=== PATIENT | female | born 1955 | race Caucasian/White ===

== ENCOUNTER 2018-07-07 07:58 | Inpatient (IN) ==
--- NOTE | 2018-07-03 19:46 | MH ---
cc: Vivek Ortega MD DATE OF ADMISSION: 07/07/2018 ADMITTING DIAGNOSES: Severe osteoarthritis of the left hip. HISTORY OF PRESENT ILLNESS: The patient is a 62-year-old white female who was admitted to the hospital in April of this past year for a history of severe osteoarthritis of her right hip. At that time, she underwent a right total hip arthroplasty being completed in an uncomplicated manner and was initiated thereafter through a course of physical therapy. During this interval of time she began to note the onset of similar pain involving her left hip that became more pronounced with the passage of time, she continued to conform to her rehab program while taking both diclofenac and Percocet for pain management. Because of increasing discomfort, she subsequently presented to the office of the undersigned physician in June of this year and at that time, described progressive incapacitation with regard to all weightbearing activities for which she was utilizing a cane as an ambulatory aid. Her x-ray studies revealed severe degenerative changes with subtotal obliteration of the joint space and deformation of the femoral head with a flattening effect that resulted in a superior subluxation of the proximal femur. Findings and treatment options were reviewed with the patient at that time. The pros and cons of continued conservative management versus operative intervention involving total hip arthroplasty were outlined in detail. Emphasis was made that the decision to proceed with additional surgery would be left entirely to the patient's discretion. The patient readily admitted that she was markedly incapacitated with regard to all weightbearing activities and noting the favorable outcome that she had experienced from previous surgery involving her right hip, expressed her desire to proceed accordingly with similar treatment at this time. In compliance with her wishes, she was scheduled for admission in order left total hip arthroplasty be completed. PAST MEDICAL HISTORY, HOSPITALIZATIONS AND SURGERIES: In addition to her right total hip arthroplasty include abdominal hysterectomy, tonsillectomy, section, medical evaluation for chest pain, the patient being later diagnosed as having GERD syndrome. MEDICAL ILLNESSES: Include her history of osteoarthritis, osteoporosis, and acid reflux. CURRENT MEDICATIONS: 1. Diclofenac 50 mg 3 times daily. 2. Tizanidine 4 mg daily. 3. Oxycodone 7.5 mg 4 times daily. 4. Zyrtec D daily. 5. Prilosec 20 mg daily. ALLERGIES: The patient describes a DRUG ALLERGY TO CODEINE, which has been associated with nausea and vomiting, but she has tolerated both hydrocodone and oxycodone as prescribed in the past. REVIEW OF SYSTEMS: She wears glasses. Denies headache, seizure, syncope, sinus congestion related to environmental irritants. No epistaxis. Auditory acuity intact. No tenderness. No bleeding gums or dysphagia. Denies cough, shortness of breath, upper respiratory infection, pneumonia, or tuberculosis. No angina or heart disease. Appetite good. Bowel movements regular. No hepatitis, gallbladder disease or ulcers. There is a positive history of hemorrhoids, history of urinary tract infection, no kidney stones. Fracture of the left foot treated by boot immobilization. No psychiatric illness. There is a positive history of degenerative disk disease of her cervical spine and a positive history for cataracts. Her remaining review of systems is unremarkable and noncontributory. FAMILY HISTORY: The patient has been a for 17 years, been at 45 years of age as related to a drug overdose. Two daughters, one with a history of thyroid cancer. FAMILY HISTORY: Positive for hypertension, esophageal cancer and ethanol abuse. SOCIAL HISTORY: The patient completed a high school education. She is employed in an accounting capacity. She admits to a less than 1 pack per day use of tobacco for greater than 45 years. Ethanol consumption in a very limited and social basis. VITAL SIGNS: VITAL SIGNS: Height 5 feet 6 inches, weight 133 pounds. GENERAL: An alert, oriented, and responsive 62-year-old white female sitting quietly upon the examination table with mild to moderate distress as related to left hip pain. HEAD, EARS, EYES, NOSE AND THROAT: Pupils are equally round and reactive to light. Extraocular movements full. Sclerae are clear. External nares clear. External auditory canals clear. Dental intact. Mucous membranes pink and moist. Pharynx clear. NECK: Supple. Limited discomfort at the extremes of mobility that the patient reports has been chronic in nature. Carotid pulse is palpable bilaterally. Trachea midline. Thyroid without enlargement. LUNGS: Clear to auscultation and percussion. No CVA tenderness. No discomfort throughout the dorsolumbar spine. HEART: Regular rate and rhythm. No murmur or gallop. ABDOMEN: Soft, nontender, bowel sounds present. PELVIC: Per primary care physician. EXTREMITIES: Left hip, there is no localizing tenderness about the hip area. There is restricted and guarded mobility of the hip joint in all ranges assessed especially involving internal rotation and abduction motion with pain at the extremes of mobility, a subtle suggestion for crepitation, but no obvious instability. Straight leg raising is negative at 60 degrees. Tyler sign is positive. Distal sensory grossly intact. Pronounced antalgic gait with cane support. NEUROLOGIC: Cranial nerves 2-12 grossly intact. IMPRESSION: Severe osteoarthritis of the left hip. PLAN: Left total hip arthroplasty. The nature of the planned surgical procedure, the potential complications and risks associated, the expectations of surgery and the consent form were thoroughly reviewed with the patient in the presence of her daughter prior to admission to the hospital. Carmela has indicated her full understanding regarding all of the above and given consent to proceed with treatment as outlined. Medical evaluation and clearance for surgery as completed by her primary care physician, Dr. Yulia Mancuso-Bright. MD SUNDAY Torres/kendra , 05:12 PM , 05:25 PM
[2018-07-07] MEDS ORDERED: ceFAZolin 2 GM Premix Inj 2 GM/50 ML PIGGYBACK IV.SIG ONE (08:25)
[2018-07-07] MEDS ORDERED: Chlorhexidine Gluconate 2% 1 Pack (2 Cloths) TOPICAL ONE (08:30)
[2018-07-07] MEDS ORDERED: Metoprolol Tartrate 25 MG Tablet PO ONE (08:30)
[2018-07-07] MEDS ORDERED: Sodium Chloride 0.9% 2 ML Flush PRN IV.FLUSH (08:58)
[2018-07-07] MEDS ORDERED: Sodium Chlor 0.9% Inj 500 ML IV.SIG SCH (09:00)
[2018-07-07] MEDS ORDERED: ceFAZolin 2 GM Premix Inj 2 GM/50 ML PIGGYBACK IV.SIG SCH (09:00)
[2018-07-07] MEDS ORDERED: Ketamine Inj 50 MG/5 ML Syringe IV.PUSH ONE (09:40)
[2018-07-07] MEDS ORDERED: HYDROmorphone PF Inj 1 MG/ML Ampul ONE (09:40)
[2018-07-07] MEDS ORDERED: Glycopyrrolate Inj 1 MG/5 ML Syringe IV.PUSH ONE (09:54)
[2018-07-07] MEDS ORDERED: Neostigmine Inj 5 MG/5 ML Syringe IV.PUSH ONE (09:54)
[2018-07-07] MEDS ORDERED: Phenylephrine/NS 1000 MCG/10ML Syringe IV.PUSH ONE (09:54)
[2018-07-07] MEDS ORDERED: Succinylcholine Inj 100 MG/5 ML Syringe IV.PUSH ONE (09:54)
[2018-07-07] MEDS ORDERED: Lidocaine PF 1% Inj 5 ML Syringe OTHER ONE (09:54)
[2018-07-07] MEDS ORDERED: Tranexamic Acid Inj 1,000 MG in Sodium Chlor 0.9% Inj 100 ML IV.SIG SCH ×2 (10:00→13:00)
[2018-07-07] MEDS ORDERED: Bisacodyl 10 MG Supp RECTAL PRN (12:15)
[2018-07-07] MEDS ORDERED: Acetaminophen 325 MG Tablet PO PRN (12:15)
[2018-07-07] MEDS ORDERED: Tranexamic Acid Inj 1,000 MG in Sodium Chlor 0.9% Inj 100 ML IV.SIG ONE (12:15)
[2018-07-07] MEDS ORDERED: Aluminum/Magnesium/Simethacone Susp 30 ML UDC PO PRN (12:15)
[2018-07-07] MEDS ORDERED: Post-op Orders (for Pharmacy) OTHER STA (12:15)
[2018-07-07] MEDS ORDERED: Naloxone Inj 0.4 MG/ML Vial IV.PUSH PRN (12:15)
[2018-07-07] MEDS ORDERED: fentaNYL Citrate Inj 100 MCG/2 ML Ampul ONE (12:28)
[2018-07-07] MEDS ORDERED: *Meperidine Inj 25 MG/ML Vial PERIprocedural Use ONLY ONE (12:32)
[2018-07-07] MEDS ORDERED: *Ondansetron Inj 4 MG/2 ML Vial PERIprocedural Use ONLY ONE (12:33)
--- NOTE | 2018-07-07 12:41 | MP ---
cc: Vivek Ortega MD DATE OF OPERATION: 07/07/2018 PREOPERATIVE DIAGNOSIS: Severe osteoarthritis of the left hip. POSTOPERATIVE DIAGNOSIS: Severe osteoarthritis of the left hip. PROCEDURE PERFORMED: Left total hip arthroplasty. SURGEON: Vivek Ortega MD ANESTHESIA: General endotracheal. INDICATIONS: A 62-year-old white female who was admitted to the hospital in April of this past year for history of severe osteoarthritis of her right hip, at which time she underwent a right total hip arthroplasty being completed in an uncomplicated manner and initiated through physical therapy thereafter. During this interval of time she began to note the onset of similar pain involving her left hip that became more pronounced with the passage of time while she continued to conform to her rehab program and taking both diclofenac and Percocet for pain management. Because of increasing discomfort, she presented to the office of the undersigned physician in June of this year and at that time, described progressive incapacitation with regard to all weightbearing activities requiring use of a cane as an ambulatory aid. Her x-ray studies revealed severe degenerative changes with subtotal obliteration of the joint space and pronounced deformation of the femoral head with flattening of affect that resulted in superior subluxation of the proximal femur. Findings and treatment options were reviewed at that time. The pros and cons of continued conservative management versus operative intervention that would involve a total hip arthroplasty were outlined in detail. Emphasis was made regarding the fact that the decision to proceed with surgery would be left entirely to the patient's discretion. The patient readily admitted that she was markedly incapacitated with regard to all weightbearing activities and noting the favorable response that she had experienced from previous surgery involving her right hip, she expressed her desire to proceed with similar treatment involving her left hip at this time. In compliance with her wishes, she was scheduled for admission in order that left total hip arthroplasty be completed. FORMAT: Following the induction of satisfactory general anesthesia by endotracheal intubation as completed per the Department of Anesthesia, the patient was positioned upon the operating table in a right lateral decubitus fashion. The left hip and lower extremity proper were isolated with a U-drape, thereafter being prepped with Betadine solution and draped into a sterile field in the routine manner. Prior to initiation of the actual procedure, the standard timeout protocol was completed. All parameters were appropriately addressed and confirmed by operating room personnel. A standard posterolateral approach to the hip was initiated through a sharp skin incision and developed the underlying subcutaneous tissue with hemostasis maintained by electrocautery. By deepening dissection, the fascia overlying the gluteus musculature was exposed and thereafter sharply incised to the limits of the incision. The underlying gluteus fibers were divided with the Bovie on cutting current. Progressive dissection facilitated exposure of the short external rotator structures. The piriformis tendon was utilized. An anatomical landmark and division of these structures was completed in a superior to inferior orientation and reflected medially, exposing the posterior capsule. The sciatic nerve was identified and protected. An L-shaped capsulotomy was accomplished through which a posterior dislocation of the femoral head was completed. Examination revealed severe degenerative changes with a pronounced deformity of the femoral head and collapse superiorly that was highly suspicious for an avascular necrosis process. The femoral template was positioned for alignment orientation. The neck was scored and thereafter divided with power saw, the amputated segment of the amputated segment being passed to the back table as surgical specimen. Attention was initially directed at the proximal femur. Cancellous bone was harvested. The tapered reamer was inserted for alignment orientation. Sequential rasping and broaching was accomplished from 7 mm - 8 mm. The calcar blair being utilized at the 8 mm stage. The 8 mm stem was determined to be a favorable fit. The trial component being removed, attention was redirected to the acetabulum. Labrum and reactive tissue were sharply excised. Progressive reaming was accomplished from 45 mm - 49 mm. The 50 mm trial shell was positioned and determined to be satisfactory. All trial components being removed, the wound was copiously irrigated with pulsating antibiotic solution, hemostasis maintained by electrocautery. Thereafter, a 50 mm RingLoc acetabular shell was firmly seated into the acetabulum in approximately 45 degrees inclination to the horizontal and slight anteversion. A single 25 mm 6.5 cancellous screw was inserted, superiorly to augment fixation. The permanent high wall acetabular liner was affixed to the acetabular shell. Attention returned to the proximal femur. The size 8 femoral trial broach was repositioned and a trial reduction followed utilizing a 36 mm modular head with -6 mm neck length adaptor. The hip readily reduced and was carried through a passive range of motion. Stability demonstrated at 90 degrees flexion and 45 degrees internal rotation. Open dislocation completed; trial femoral components were removed. The canal thoroughly irrigated with pulsating antibiotic solution and thereafter a size 8 Echo Bi-Metric hip stem, standard femoral offset was firmly seated, to which a 36 mm ceramic head with -6 mm neck length adapter attached. Open reduction completed and repeat range of motion again noted stability as previously described. Final irrigation was accomplished, hemostasis being maintained by electrocautery. Posterior capsule was repaired with 0-Vicryl suture. Piriformis tendon and short external rotator structures were reapproximated in a similar manner. Hemovac drain tubes inserted through superior stab wounds. The fascia of the gluteus musculature reapproximated with a running 0-Vicryl suture. Remaining portion of the wound was closed in layers in the routine manner, skin margins being reapproximated with a running subcuticular 3-0 Vicryl suture over which Steri-Strips were applied. Xeroform gauze and a bulky dry sterile dressing placed. The patient was repositioned into a supine orientation; abduction splint attached. Anesthesia discontinued. The patient thus was transferred to a hospital bed and returned to the recovery room in satisfactory condition, having tolerated her operative procedure well. Estimated blood loss was approximately 200 mL as determined per anesthesia. All implants were of the Biomet manager outpatient. MD SUNDAY Torres/judy , 12:10 PM , 12:23 PM
[2018-07-07] MEDS ORDERED: Morphine Sulfate Inj 2 MG/ML Vial IV.PUSH PRN (12:45)
[2018-07-07] MEDS ORDERED: Dimethicone/Oxybenzone-Padimate Lip Balm 4.25 GM Tube TOPICAL ONE (12:59)
[2018-07-07] MEDS: HYDROmorphone PCA Inj 6 MG/30 ML PCA.VIAL PCA PRN (13:00)
--- NOTE | 2018-07-07 13:05 | XR ---
EXAM DATE: 07/07/2018 1:01 PM EDT AGE/SEX: 62 years / Female INDICATIONS: Post-op left total hip arthroplasty. CLINICAL DATA: This is the patient's initial encounter. Patient reports that signs and symptoms have been present for 1 day and indicates a pain score of 0/10. MEDICAL/SURGICAL HISTORY: None. . Right total hip arthroplasty. COMPARISON: [facility], XR HIP AP AND LAT, LEFT, 04/15/2018. . FINDINGS: Single view of pelvis and additional view left hip demonstrates left hip arthroplasty. No hardware lo osening or fracture. Postsurgical changes. Right hip is also noted to have previous arthroplasty. CONCLUSION: Left hip arthroplasty. Electronically signed by: Mathew Roy MD 07/07/2018 1:04 PM EDT
--- NOTE | 2018-07-07 13:14 | P.DCO ---
- Diagnosis (1) Degenerative joint disease of left hip Status: Acute - Physical Therapy Order: Evaluate and treat, Improve ambulation, Strength and gait training - Home Health Nursing Order: Wound care and dressing changes, Nursing assessment with vital signs - Home Health Aide Order: To assist in: Bathing and personal care, diesel engine mechanic and meal prep - Caustic Loader Order: To evaluate: Living conditions/environment, Support services Order: To provide: Long range planning, Community services - Case Management Consult Yes - Certification I have seen patient Carmela Castellano on 07/07/18. My clinical findings support the need for the requested home health care services because: Limited ability to care for self, High risk of falls I certify that my clinical findings support that this patient is homebound because: Post-op weakness, Unsteady gait/balance, Unsafe to leave home unassisted (1) Degenerative joint disease of left hip Qualifiers: Osteoarthritis type: primary Qualified Code(s): M16.12 - Unilateral primary osteoarthritis, left hip
[2018-07-07] MEDS: Sodium Chloride 0.9% 2 ML Flush BID IV.FLUSH SCH ×2 (13:21→22:01)
[2018-07-07] MEDS: ceFAZolin 1 GM Premix Inj 1 GM/50 ML IV.SIG SCH ×2 (16:05→22:23)
--- NOTE | 2018-07-07 16:45 | P.CONIM ---
History of Present Illness Consult date: 07/07/18 Primary Care Provider: Yulia Washburn MD Chief Complaint: Here for procedure History of Present Illness: The patient is a 62-year-old female with a past medical history of osteoarthritis who is presenting to the hospital for elective left hip replacement. She states she had her right hip replaced last year. At home she has been taking diclofenac and oxycodone for pain control. She has been benefiting from physical therapy. She said that traction helped a lot. She has been ambulating with a cane and walker. She is able to go up and down stairs but very slowly. She tolerated the procedure well and medicine was consulted for medical management. The patient is currently requesting a nicotine patch. Review of Systems All other systems reviewed negative except as stated in HPI PMFSH - History History Provided By: Patient - Medical History Medical History: Medical History (Last Updated 07/07/18 @ 16:37 by Matheus Morse DO) Osteoarthritis Environmental allergies Hx of hysterectomy Pain of left hip joint Wears glasses - Surgical History Surgical History: Surgical History (Last Updated 07/07/18 @ 16:37 by Matheus Morse DO) History of right hip replacement History of total right hip arthroplasty Hx of section Hx of right knee surgery Hx of tonsillectomy - Family History Family History: Family History (Last Updated 07/07/18 @ 16:37 by Matheus Morse DO) Other No pertinent family history - Social History I have reviewed the patient's Social History: Yes - Tobacco History Second Hand Smoke Exposure: Yes Tobacco Use In Past 30 Days: Yes Smoking Status: Current every day smoker Tobacco Type: Cigarettes - Alcohol History How Often Do You Have a Drink Containing Alcohol: Monthly or less - Substance Use History Substance History: No History of Abuse Medications and Allergies Active Medications: Active Medications Acetaminophen (Tylenol) 650 mg PO Q6H PRN PRN Reason: FEVER > 102 F Hydrocodone Bitart/Acetaminophen ([place] 7.5/325) 1 tab PO Q4H PRN PRN Reason: PAIN LESS THAN 5 ON SCALE Al Hydrox/Mg Hydrox/Simethicone (Mag-Al Plus Susp Liq) 30 ml PO Q6H PRN PRN Reason: INDIGESTION Al Hydroxide/Mg Hydroxide (Milk Of Magnesia Liq) 30 ml PO BID PRN PRN Reason: Mild Constipation Aspirin (Aspirin) 325 mg PO BID TRISTAN Bisacodyl (Dulcolax Supp) 10 mg RECTAL DAILY PRN PRN Reason: SEVERE CONSITIPATION Clonidine HCl (Catapres) 0.1 mg PO Q6H PRN PRN Reason: Sbp> Or = 170, Dbp> Or = 100 Lactated Ringer's (Lr 1000 Ml Inj) 1,000 mls @ 30 mls/hr IV.SIG .Q24H TRISTAN Stop: 07/08/18 08:29 Last Admin: 07/07/18 09:13 Dose: 30 mls/hr Cefazolin Sodium/Dextrose (Ancef 2 Gm Premix Inj) 2 gm in 50 mls @ 100 mls/hr IV.SIG PLASTER HELPER [facility] Stop: 07/11/18 08:59 Last Infusion: 07/07/18 10:45 Dose: Infused Tranexamic Acid 1,000 mg/ (Sodium Chloride) 110 mls @ 200 mls/hr IV.SIG ONCE [facility] Stop: 07/08/18 16:00 Last Infusion: 07/07/18 10:45 Dose: Infused Tranexamic Acid 1,000 mg/ (Sodium Chloride) 110 mls @ 200 mls/hr IV.SIG ONCE [facility] Stop: 07/07/18 18:00 Cefazolin Sodium/Dextrose (Ancef 1 Gm Premix Inj) 1 gm in 50 mls @ 100 mls/hr IV.SIG Q6H [facility] Stop: 07/08/18 04:29 Last Admin: 07/07/18 16:05 Dose: 100 mls/hr Hydromorphone/Sodium Chloride (Dilaudid Hospice Bereavement Coordinator Inj) 6 mg in 30 mls @ 0 mls/hr PESTICIDE CHEMIST UNSCH PRN PRN Reason: per PESTICIDE CHEMIST parameters Stop: 07/08/18 12:14 Last Admin: 07/07/18 13:00 Dose: 0 mls/hr Lactated Ringer's (Lr 1000 Ml Inj) 1,000 mls @ 80 mls/hr IV.CONT .[id number] [facility] Last Admin: 07/07/18 13:00 Dose: 80 mls/hr Lactulose (Lactulose Liq) 30 ml PO DAILY PRN PRN Reason: SEVERE CONSITIPATION Loratadine/Pseudoephedrine Sulfate (Claritin-D 12 Hour Allergy & Congestion) 1 tab PO DAILY [facility] Miscellaneous Information (Misc Nursing Information) 0 each OTHER UNSCH PRN PRN Reason: SEE DOSE INSTRUCTIONS Miscellaneous Information ([facility] Nursing Information) 0 each OTHER UNSCH PRN PRN Reason: SEE LABEL COMMENTS Stop: 07/08/18 12:15 Morphine Sulfate (Morphine Inj) 2 mg IV.PUSH Q3H PRN PRN Reason: BREAKTHROUGH PAIN Naloxone HCl (Narcan Inj) 0.4 mg IV.PUSH PRN PRN PRN Reason: SEE LABEL COMMENTS Nicotine (Habitrol 7 Mg Patch.24 Hr) 1 patch T-DERMAL DAILY [facility] Ondansetron HCl (Zofran Inj) 4 mg IV.PUSH Q6H PRN PRN Reason: NAUSEA OR VOMITING Pantoprazole Sodium (Protonix) 20 mg PO DAILY [facility] Patch Removal (Remove Old Patch) 1 each T-DERMAL HS [facility] Povidone Iodine (Betadine 7.5% Scrub) 1 applicatio TOPICAL ONCE [facility] Stop: 07/11/18 08:59 Senna/Docusate Sodium (Alondra-Colace) 1 tab PO BID [facility] Sennosides (Senokot) 17.2 mg PO BID PRN PRN Reason: Moderate Constipation Sodium Chloride (Ns Flush) 2 ml IV.FLUSH BID [facility] Last Admin: 07/07/18 13:21 Dose: Not Given Sodium Chloride (Ns Flush) 2 ml IV.FLUSH PRN PRN PRN Reason: FLUSH AFTER USING IV ACCESS Sodium Chloride (Ns Flush) 2 ml IV.FLUSH BID [facility] Sodium Chloride (Ns Flush) 2 ml IV.FLUSH PRN PRN PRN Reason: FLUSH AFTER USING IV ACCESS Tizanidine HCl (Zanaflex) 4 mg PO HS [facility] Zolpidem Tartrate (Ambien) 5 mg PO HS PRN PRN Reason: INSOMNIA Allergies Allergy/AdvReac Type Severity Reaction Status Date / Time No Known Allergies Allergy Verified 07/07/18 08:53 Home Medications Medication Instructions Recorded Confirmed Type cetirizine-pseudoephedrine 1 tab PO DAILY 06/22/18 07/07/18 History [Zyrtec-D] diclofenac sodium 50 mg PO TID 06/22/18 07/07/18 History omeprazole magnesium [Prilosec OTC] 20 mg PO DAILY 06/22/18 07/07/18 History oxycodone 7.5 mg PO TID 06/22/18 07/07/18 History tizanidine 4 mg PO HS 06/22/18 07/07/18 History Exam Vital signs: Vital Signs 07/07/18 08:56 07/07/18 12:19 07/07/18 12:30 Temperature 97.9 F 97.1 F L Pulse Rate 86 70 82 Respiratory Rate 20 16 16 Blood Pressure 157/65 H 100/51 L 126/58 L Pulse Oximetry 98 100 96 07/07/18 12:45 07/07/18 13:00 07/07/18 13:15 Temperature Pulse Rate 80 78 76 Respiratory Rate 16 16 16 Blood Pressure 130/62 140/65 149/69 H Pulse Oximetry 96 95 95 07/07/18 13:30 07/07/18 14:00 07/07/18 15:00 Temperature Pulse Rate 74 74 78 Respiratory Rate 16 16 16 Blood Pressure 148/68 H 168/69 H 149/65 H Pulse Oximetry 95 95 95 07/07/18 16:00 Temperature Pulse Rate 88 Respiratory Rate 16 Blood Pressure 152/70 H Pulse Oximetry 97 Intake & Output 07/06/18 07/07/18 07/07/18 18:59 06:59 18:59 Intake Total 800 / 800 Output Total 200 / 200 Balance 600 / 600 Weight 60.3 kg Intake: IV 160 / 160 Cyklokapron Inj 1,000 MG In NS 110 / 110 Inj 100 ML @ 200 mls/hr IV.SIG ONCE TRISTAN Rx#:[id number] Ancef 2 GM Premix Inj 2 gm In 50 / 50 50 ml @ 100 mls/hr IV.SIG PLASTER HELPER TRISTAN Rx#:[id number] Anesthesia Amount 640 / 640 Output: Estimated Blood Loss 200 / 200 Other: # Voids 1 Weight On Admission 60.3 kg Narrative: General: NAD HEENT: NC, AT Lungs: Mild wheezing Heart: RRR, mild systolic murmur appreciated GI: Soft, nontender Extremities: Left lower extremity in splint Neuro: No gross deficits Results - Labs Labs: Laboratory Results - last 24 hr 07/07/18 08:50 Blood Type O Positive Blood Type Recheck Required Antibody Screen Negative - Imaging Impressions Hip X-Ray 07/07/18 12:13 CONCLUSION: Left hip arthroplasty. Assessment and Plan - Plan Severe osteoarthritis S/p left hip replacement 07/07/18. Had Right hip replaced last year. -wound care, weight-bearing and anticoagulation per surgery. -physical therapy. -incentive spirometry. HTN Blood pressure likely elevated s/t pain. -pain control with a bowel regimen. -clonidine as needed. Nicotine dependance The pt smokes about a pack daily. -cessation instruction. -nicotine patch. PPx: Per surgery
[2018-07-07] MEDS ORDERED: Zolpidem Tartrate 5 MG Tablet PO PRN (21:00)
[2018-07-07] MEDS: Senna/Docusate Sodium 8.6/50 MG Tablet PO SCH (22:00)
[2018-07-07] MEDS: Aspirin 325 MG Tablet PO SCH (22:00)
[2018-07-08] MEDS: ceFAZolin 1 GM Premix Inj 1 GM/50 ML IV.SIG SCH (04:08)
[2018-07-08] MEDS: HYDROmorphone PCA Inj 6 MG/30 ML PCA.VIAL PCA PRN (05:39)
[2018-07-08 05:44] LABS: Hemoglobin 10.8 gm/dL (11.6-15.3)
[2018-07-08] MEDS: Senna/Docusate Sodium 8.6/50 MG Tablet PO SCH ×2 (08:00→20:47)
[2018-07-08] MEDS: Aspirin 325 MG Tablet PO SCH ×2 (08:00→20:47)
[2018-07-08] MEDS: Pantoprazole Sodium 20 MG DR Tablet PO SCH (08:00)
[2018-07-08] MEDS: Loratadine/Pseudoephedrine 12HR Tablet PO SCH (08:01)
[2018-07-08] MEDS: Sodium Chloride 0.9% 2 ML Flush BID IV.FLUSH SCH ×2 (08:01→22:43)
--- NOTE | 2018-07-08 14:44 | P.PNIM ---
Subjective Interval history: The patient was sitting up in a chair. She said she had increased pain from working out but was excited to go home tomorrow she has been tolerating a diet. She has not slept well but she said she will sleep better at home. No acute concerns at this time. Physical Exam Vital signs: Vital Signs 07/07/18 15:00 07/07/18 16:00 07/07/18 17:25 Temperature Pulse Rate 78 88 Respiratory Rate 16 16 16 Blood Pressure 149/65 H 152/70 H Pulse Oximetry 95 97 07/07/18 17:54 07/07/18 20:00 07/08/18 00:00 Temperature 98.2 F 97.6 F 98.7 F Pulse Rate 90 85 83 Respiratory Rate 16 18 17 Blood Pressure 133/61 145/63 H 140/64 Pulse Oximetry 95 95 95 07/08/18 04:00 07/08/18 07:44 07/08/18 08:00 Temperature 98.5 F 97.8 F Pulse Rate 83 81 Respiratory Rate 17 18 18 Blood Pressure 135/65 139/68 Pulse Oximetry 96 96 07/08/18 08:27 07/08/18 12:00 07/08/18 13:15 Temperature 98.1 F Pulse Rate 81 Respiratory Rate 18 18 18 Blood Pressure 134/65 Pulse Oximetry 97 Intake & Output 07/07/18 07/08/18 07/08/18 18:59 06:59 18:59 Intake Total 850 / 850 1100 / 1100 Output Total 580 / 580 70 / 70 Balance 270 / 270 1030 / 1030 Weight 60.3 kg 60.2 kg Intake: IV 210 / 210 1100 / 1100 LR 1000 mL Inj 1,000 ML @ 80 1000 / 1000 mls/hr IV.CONT .[id number] TRISTAN Rx# :[id number] Cyklokapron Inj 1,000 MG In NS 110 / 110 Inj 100 ML @ 200 mls/hr IV.SIG ONCE [facility]ST[facility] Rx#:[id number] Ancef 1 GM Premix Inj 1 gm In 50 / 50 100 / 100 50 ml @ 100 mls/hr IV.SIG Q6H [facility]STAN Rx#:[id number] Ancef 2 GM Premix Inj 2 gm In 50 / 50 50 ml @ 100 mls/hr IV.SIG ENTRY LEVEL ACCOUNTANT TRISTAN Rx#:[id number] Anesthesia Amount 640 / 640 Output: Urine 350 / 350 Estimated Blood Loss 200 / 200 Wound Drainage 70 / 70 # 1 Left Hip Hemovac 70 / 70 Other: # Voids 1 2 Date of Last Bowel Movement 07/07/18 Weight On Admission 60.3 kg Narrative: General: NAD HEENT: NC, AT Lungs: CTAB. Heart: RRR, mild systolic murmur appreciated GI: Soft, nontender Extremities: Left lower extremity in splint Neuro: No gross deficits Results - Labs CBC & Chem 7: 07/08/18 04:57 Laboratory Results - last 24 hr 07/08/18 04:57 Hgb 10.8 L Hct 32.0 L Assessment and Plan - Plan Severe osteoarthritis S/p left hip replacement 07/07/18. Had Right hip replaced last year. -wound care, weight-bearing and anticoagulation per surgery. -physical therapy. -incentive spirometry. HTN Blood pressure likely elevated s/t pain. Improved. -pain control with a bowel regimen. -clonidine as needed. Nicotine dependance The pt smokes about a pack daily. -cessation instruction. -nicotine patch. PPx: Per surgery Medicine will sign off on this stable patient. Please reconsult as needed.
--- NOTE | 2018-07-09 07:20 | MD ---
cc: Vivek Ortega MD, Carol DATE OF DISCHARGE: 07/09/2018 ADMITTING DIAGNOSIS: Severe osteoarthritis of the left hip. DISCHARGE DIAGNOSIS: Severe osteoarthritis of the left hip. HISTORY: A 62-year-old white female who had been admitted to the hospital in April of this past year for history of severe osteoarthritis of her right hip. She had undergone total hip arthroplasty at that time, which was accomplished in an uncomplicated manner and the patient having an uneventful recovery thereafter. During her period of rehabilitation, she became progressively more symptomatic with pain involving her left hip that began to limit all weightbearing activities and influence her continued mobilization. She presented to the office in followup disposition at which time x-ray studies revealed severe degenerative changes with subtotal obliteration of her joint space, deformation of the femoral head with flattening affect, and superior subluxation of the proximal femur. Findings were reviewed with treatment options discussed. Given the progressive nature of her pain, the patient expressed her desire to proceed with operative intervention of her left hip, having noted a very favorable response from similar treatment of her right hip in the past. In compliance with her wishes, she was scheduled for admission in order that the above be accomplished. For additional information with regard to the details of pertinent history, interested parties would be directed to the documentation of her history and physical examination. PHYSICAL EXAMINATION: Her physical examination at the time of admission did reveal no localizing tenderness about the left hip. There was restricted and guarded mobility of the hip joint in all ranges assessed, being most pronounced with internal rotation and abduction maneuvering and pain occurring at the extremes of mobility. There was a suggestion for crepitation, but no obvious instability. Straight-leg raising negative at 60 degrees. Tyler sign positive. Distal sensory grossly intact. Pronounced antalgic gait with cane support. HOSPITAL COURSE: Prior to admission to the hospital, the patient had undergone medical evaluation and clearance for surgery as completed by her primary care physician, Dr. Yulia Sullivan. She was taken to the operating room on 07/07/2018, and on that date underwent a left total hip arthroplasty completed in an uncomplicated manner. The patient was noted to have tolerated her operative procedure well. Her postoperative course stable thereafter. Hemoglobin and hematocrit assessment postoperatively was 10.8 and 32.0 respectively. The patient was progressively mobilized under the guidance of physical therapy, being permitted weightbearing to tolerance about the left lower extremity. Followup examination of her surgical wound noted to be intact, healing favorably with no evidence of infection. Medical followup per the hospitalist service. DVT prophylaxis initiated. Sociology Professor consulted to assist with discharge planning. The patient had indicated her desire to be discharged home and continue rehabilitation on outpatient basis. Plans were finalized in this regard; and pending medical clearance, she was scheduled for discharge on the second postoperative day, at which time she was noted to be making favorable progress with regard to her initial rehabilitation program. She was scheduled to be seen in office followup in approximately 4 weeks. CONDITION AT THE TIME OF DISCHARGE: Stable. PROGNOSIS: Favorable. DISCHARGE MEDICATIONS: Included hydrocodone 7.5/325 #30, aspirin 325 mg 1 tab twice daily for 4 weeks. MD SUNDAY Torres/chacho , 06:47 AM , 06:54 AM
[2018-07-09] MEDS: Pantoprazole Sodium 20 MG DR Tablet PO SCH (08:46)
[2018-07-09] MEDS: Aspirin 325 MG Tablet PO SCH (08:46)
[2018-07-09] MEDS: Senna/Docusate Sodium 8.6/50 MG Tablet PO SCH (08:47)
[2018-07-09] MEDS: Sodium Chloride 0.9% 2 ML Flush BID IV.FLUSH SCH (08:47)
[2018-07-09] MEDS: Loratadine/Pseudoephedrine 12HR Tablet PO SCH (08:48)
== END 2018-07-09 12:40 | disposition home health service (06) ==
LOC: HSDI 07:58 → N06 17:45
PROVIDERS: ADMIT Orthopaedic Surgery; ATTEND Orthopaedic Surgery